=== PATIENT | female | born 1995 | race Caucasian/White ===

== ENCOUNTER 2017-03-31 19:45 | Outpatient (CLI) | payer OTHER ==
[~2017-03-31] VITALS: Ht 157.5 cm; Wt 73.0 kg
[2017-03-31] MEDS ORDERED: PRENTAB26 PO (21:02)
[2017-03-31 21:04] VITALS: Ht 157.5 cm; Wt 73.0 kg
[2017-10-10] MEDS ORDERED: AMOX875T PO (15:06)
== END 2017-03-31 21:10 | disposition home or self-care (01) ==
LOC: C.OPB 19:45 → C.LD 19:45 → C.OPB 21:10
PROVIDERS: ATTEND Obstetrics & Gynecology
DX: O26.893 Other specified pregnancy related conditions, third trimester (principal); R10.2 Pelvic and perineal pain; Z3A.36 36 weeks gestation of pregnancy